=== PATIENT | female | born 1985 | race Caucasian/White ===

== ENCOUNTER 2022-03-30 09:32 | Emergency (ER) | payer SELFPAY ==
[2022-03-30] MEDS ORDERED: Ibuprofen 600 MG Tab PO ONE (09:48)
== END 2022-03-30 10:30 | disposition home or self-care (01) ==
LOC: MW.ED 09:32
DX: S29.011A Strain of muscle and tendon of front wall of thorax, initial encounter (principal); Y04.0XXA Assault by unarmed brawl or fight, initial encounter
CPT/HCPCS: 71046; 99284; A9270

== ENCOUNTER 2022-04-01 20:18 | Emergency (ER) | payer SELFPAY ==
[2022-04-01] MEDS ORDERED: Sodium Chloride 0.9% 1,000 ML IV ONE (22:41)
[2022-04-01] MEDS ORDERED: Ondansetron 4 MG/2 ML SDV IVPUSH ONE (22:46)
[2022-04-01] MEDS ORDERED: HYDROmorphone 1 MG/ML Syringe IVPUSH ONE (22:46)
[2022-04-01 23:41] LABS: CARBON DIOXIDE,CO2 26.8 mmol/L (21.0-32.0); POTASSIUM,K 4.7 mmol/L (3.5-5.1)
[2022-04-02] MEDS ORDERED: Iopamidol 755 MG/ML 500 ML Multipack Bottle IVPUSH STA (00:35)
[2022-04-02] MEDS ORDERED: ceFAZolin 1 GM in Premix Bag 1 BAG IV SCH (01:30)
[2022-04-02] MEDS ORDERED: Acetaminophen/HYDROcodone 325-5 MG Tab PO ONE (01:51)
== END 2022-04-02 02:30 | disposition home or self-care (01) ==
LOC: MW.ED 20:18
DX: S29.011A Strain of muscle and tendon of front wall of thorax, initial encounter (principal); N61.0 Mastitis without abscess; Z86.16 Personal history of COVID-19; Y04.0XXA Assault by unarmed brawl or fight, initial encounter; Y93.72 Activity, wrestling
CPT/HCPCS: 36415; 71260; 80053; 83605; 84703; 85025; 87040; 96361; 96365; 96375; 99284; A9270; J0690; J1170; J2405; J7030; Q9967

== ENCOUNTER 2022-07-08 00:05 | Emergency (ER) | payer SELFPAY ==
[2022-07-08] MEDS ORDERED: Acetaminophen/HYDROcodone 325-5 MG Tab PO ONE (01:01)
[2022-07-08] MEDS ORDERED: Tranexamic Acid 1,000 MG/10 ML Vial ONE (02:15)
== END 2022-07-08 03:03 | disposition home or self-care (01) ==
LOC: MW.ED 00:05
DX: S09.93XA Unspecified injury of face, initial encounter (principal); S01.511A Laceration without foreign body of lip, initial encounter; Y04.0XXA Assault by unarmed brawl or fight, initial encounter
CPT/HCPCS: 70486; 99284; A9270; J3490

== ENCOUNTER 2022-08-26 09:20 | Emergency (ER) | payer SELFPAY ==
[2022-08-26] MEDS ORDERED: Tranexamic Acid 1,000 MG/10 ML Vial TOP ONE ×2 (09:43→10:28)
[2022-08-26] MEDS ORDERED: Lidocaine 1% with EPINEPHrine 1:100,000 10 ML MDV INJECT ONE (10:28)
[2022-08-26] MEDS ORDERED: Lidocaine 1% with EPINEPHrine 1:100,000 20 ML MDV INJECT ONE (10:37)
== END 2022-08-26 11:59 | disposition home or self-care (01) ==
LOC: MW.ED 09:20
DX: K06.8 Other specified disorders of gingiva and edentulous alveolar ridge (principal); Z86.16 Personal history of COVID-19
CPT/HCPCS: 99283; J3490

== ENCOUNTER 2022-09-04 23:55 | Emergency (ER) | payer SELFPAY ==
[2022-09-05] MEDS ORDERED: Acetaminophen 500 MG Tab PO ONE (00:05)
[2022-09-05] MEDS ORDERED: Ibuprofen 400 MG Tab PO ONE (00:05)
[2022-09-05] MEDS ORDERED: Lidocaine/Epineph/Tetracaine 3 ML Syringe TOP ONE (00:06)
[2022-09-05] MEDS ORDERED: Cephalexin 500 MG Cap PO ONE (01:33)
== END 2022-09-05 02:09 | disposition home or self-care (01) ==
LOC: MW.ED 23:55
DX: S61.211A Laceration without foreign body of left index finger without damage to nail, initial encounter (principal); Z86.16 Personal history of COVID-19; W26.0XXA Contact with knife, initial encounter
CPT/HCPCS: 12001; 99282; A9270

== ENCOUNTER 2022-09-17 04:07 | Emergency (ER) | payer SELFPAY ==
[2022-09-17] MEDS ORDERED: Tranexamic Acid 1,000 MG/10 ML Vial TOP ONE (04:27)
== END 2022-09-17 07:09 | disposition home or self-care (01) ==
LOC: MW.ED 04:07
DX: R04.0 Epistaxis (principal); Z86.16 Personal history of COVID-19
CPT/HCPCS: 30903; 99282; 99283; J3490

== ENCOUNTER 2023-02-20 20:53 | Emergency (ER) | payer SELFPAY ==
[2023-02-20 21:20] LABS: BASOPHILS PERCENT AUTO 0.6 % (0.0-1.5); EOSINOPHILS ABSOLUTE AUTO 0.1 K/uL (0.0-0.7); EOSINOPHILS PERCENT AUTO 1.3 % (0.0-7.0); HEMATOCRIT 22.4 % (36.0-46.0); HEMOGLOBIN 6.3 g/dL (12.0-16.0); LYMPHOCYTES ABSOLUTE AUTO 1.6 K/uL (0.6-2.4); LYMPHOCYTES PERCENT AUTO 23.7 % (16.0-40.0); MEAN CORPUSCULAR HEMOGLOBIN 26.1 pg (27.0-32.0); MEAN CORPUSCULAR HGB CONC 28.1 g/dL (31.0-37.0); MEAN CORPUSCULAR VOLUME 92.9 fL (80.0-98.0); MONOCYTES ABSOLUTE AUTO 0.4 K/uL (0.0-0.8); MONOCYTES PERCENT AUTO 5.8 % (0.0-15.0); NEUTROPHILS ABSOLUTE AUTO 4.7 K/uL (1.4-5.7); NEUTROPHILS PERCENT AUTO 68.6 % (48.0-80.0); NRBC ABSOLUTE 0 K/uL; NRBC PERCENT 0.4 /100WBC; RED BLOOD CELL COUNT 2.41 M/uL (4.30-5.90); WHITE BLOOD CELL COUNT,WBC 6.88 K/uL (4.0-11.0)
[2023-02-20] MEDS ORDERED: Morphine 4 MG/ML Syringe IVPUSH ONE ×2 (21:20→22:49)
[2023-02-20] MEDS ORDERED: Ondansetron 4 MG/2 ML SDV IVPUSH ONE (21:20)
[2023-02-20 21:35] LABS: PLATELET COUNT,PLT 128 K/uL (150-400)
[2023-02-20 21:42] LABS: A/G RATIO 0.4 (0.9-1.6); ALBUMIN 2.4 g/dL (3.4-5.0); BILIRUBIN TOTAL 5.2 mg/dL (0.2-1.0); CALCIUM 7.3 mg/dL (8.5-10.1); CARBON DIOXIDE,CO2 25.4 mmol/L (21.0-32.0); CREATININE 0.7 mg/dL (0.6-1.0); EST CRCL DRUG DOSING (CG) 95.02 mL/min; POTASSIUM,K 3.7 mmol/L (3.5-5.1); PROTEIN TOTAL,TP 7.8 g/dL (6.4-8.2)
[2023-02-20] MEDS ORDERED: Iopamidol 755 MG/ML 500 ML Multipack Bottle IVPUSH ONE (22:05)
[2023-02-20] MEDS ORDERED: Morphine 10 MG/ML SDV IVPUSH ONE (22:42)
[2023-02-20] MEDS ORDERED: Morphine 4 MG/ML Syringe ONE (22:45)
[2023-02-20] MEDS ORDERED: Metoclopramide 10 MG/2 ML SDV IVPUSH ONE (23:31)
== END 2023-02-21 02:30 | disposition left against medical advice (07) ==
LOC: MW.ED 20:53
DX: K92.0 Hematemesis (principal); D64.9 Anemia, unspecified; J90 Pleural effusion, not elsewhere classified; Z86.16 Personal history of COVID-19; Z98.890 Other specified postprocedural states
CPT/HCPCS: 36415; 36430; 74177; 80053; 81025; 85025; 86850; 86900; 86901; 86920; 96374; 96375; 96376; 99284; J2270; J2405; J2765; P9016; Q9967

== ENCOUNTER 2023-02-26 13:18 | Emergency (ER) | payer SELFPAY ==
[2023-02-26 14:01] LABS: BASOPHILS PERCENT AUTO 0.8 % (0.0-1.5); EOSINOPHILS ABSOLUTE AUTO 0.1 K/uL (0.0-0.7); EOSINOPHILS PERCENT AUTO 1.7 % (0.0-7.0); HEMOGLOBIN 7.8 g/dL (12.0-16.0); LYMPHOCYTES ABSOLUTE AUTO 0.9 K/uL (0.6-2.4); LYMPHOCYTES PERCENT AUTO 17.3 % (16.0-40.0); MEAN CORPUSCULAR HEMOGLOBIN 26.8 pg (27.0-32.0); MEAN CORPUSCULAR HGB CONC 28.9 g/dL (31.0-37.0); MEAN CORPUSCULAR VOLUME 92.8 fL (80.0-98.0); MONOCYTES ABSOLUTE AUTO 0.2 K/uL (0.0-0.8); MONOCYTES PERCENT AUTO 4.5 % (0.0-15.0); NEUTROPHILS PERCENT AUTO 75.7 % (48.0-80.0); NRBC ABSOLUTE 0 K/uL; PLATELET COUNT,PLT 89 K/uL (150-400); RED BLOOD CELL COUNT 2.91 M/uL (4.30-5.90); WHITE BLOOD CELL COUNT,WBC 5.32 K/uL (4.0-11.0)
[2023-02-26] MEDS ORDERED: Pantoprazole 80 MG in Sodium Chloride 0.9% 10 ML IVPUSH ONE (14:01)
[2023-02-26 14:11] LABS: CALCIUM 7.8 mg/dL (8.5-10.1); CARBON DIOXIDE,CO2 27.6 mmol/L (21.0-32.0); CREATININE 0.6 mg/dL (0.6-1.0); EST CRCL DRUG DOSING (CG) 120.18 mL/min; POTASSIUM,K 3.4 mmol/L (3.5-5.1)
[2023-02-26] MEDS ORDERED: cefTRIAXone 1 GM in Sodium Chloride 0.9% 50 ML IV SCH (14:15)
[2023-02-26] MEDS ORDERED: Octreotide 500 MCG in Sodium Chloride 0.9% 495 ML IV SCH ×2 (14:15→14:45)
[2023-02-26 14:17] LABS: INR 1.66 (0.86-1.11)
[2023-02-26 14:20] LABS: LACTIC ACID 1.3 mmol/L (0.4-2.0)
[2023-02-26] MEDS ORDERED: Morphine 4 MG/ML Syringe IVPUSH ONE ×2 (14:52→15:57)
[2023-02-26] MEDS ORDERED: Iopamidol 755 Mg/ML 100 ML Bottle IVPUSH ONE (15:05)
[2023-02-26 15:43] LABS: A/G RATIO 0.4 (0.9-1.6); ALBUMIN 2.4 g/dL (3.4-5.0); BILIRUBIN TOTAL 6.2 mg/dL (0.2-1.0); CALCIUM 7.3 mg/dL (8.5-10.1); CARBON DIOXIDE,CO2 26.2 mmol/L (21.0-32.0); CREATININE 0.6 mg/dL (0.6-1.0); EST CRCL DRUG DOSING (CG) 120.18 mL/min; POTASSIUM,K 3.4 mmol/L (3.5-5.1); PROTEIN TOTAL,TP 7.9 g/dL (6.4-8.2)
[2023-02-26] MEDS ORDERED: Naloxone 0.4 MG/ML SDV IVPUSH PRN (15:57)
[2023-02-26 15:58] LABS: BICARBONATE,ARTERIAL 24 mEq/L (22-26); PCO2 ARTERIAL 34 mmHG (35-45); PO2 ARTERIAL 103 mmHG (80-105)
[2023-02-26 16:25] LABS: GLUCOSE,URINE NEGATIVE (NEGATIVE); KETONES,URINE NEGATIVE (NEGATIVE); LEUKOCYTE ESTERASE,URINE TRACE (NEGATIVE); NITRITE,URINE POSITIVE (NEGATIVE); OCCULT BLOOD,URINE NEGATIVE (NEGATIVE); PROTEIN,URINE TRACE mg/dL (NEGATIVE); UROBILINOGEN,URINE >=8.0 EU/dL (<2.0)
[2023-02-26 16:32] LABS: APPEARANCE,URINE CLEAR; BILIRUBIN,URINE LARGE (NEGATIVE)
[2023-02-26 16:33] LABS: COLOR,URINE ORANGE
[2023-02-26 16:34] LABS: BACTERIA,URINE RARE (NEGATIVE); EPITHELIAL CELLS,URINE RARE (NONE-FEW); RBC,URINE 0-2 (0-2/HPF)
[2023-02-26] MEDS ORDERED: Sodium Chloride 0.9% 250 ML IV ONE (16:37)
[2023-02-26] MEDS ORDERED: Ondansetron 4 MG/2 ML SDV IVPUSH ONE (19:23)
== END 2023-02-26 19:15 ==
LOC: MW.ED 13:18
DX: K92.0 Hematemesis (principal); F17.210 Nicotine dependence, cigarettes, uncomplicated; Z86.16 Personal history of COVID-19
CPT/HCPCS: 36415; 36430; 36600; 74177; 80048; 80053; 81001; 82803; 83605; 84703; 85025; 85610; 86850; 86900; 86901; 86920; 96365; 96366; 96367; 96375; 96376; 99291; C9113; J0696; J2270; J2354; J2405; J3490; J7030; J7040; P9016; Q9967

== ENCOUNTER 2023-04-13 19:16 | Emergency (ER) | payer SELFPAY ==
[2023-04-13] MEDS ORDERED: Sodium Chloride 0.9% 10 ML Syringe FLUSH PRN (21:32)
[2023-04-13] MEDS ORDERED: Sodium Chloride 0.9% 2.5 ML Syringe FLUSH PRN (21:32)
[2023-04-13] MEDS ORDERED: Naloxone 0.4 MG/ML SDV IVPUSH PRN (21:35)
[2023-04-13 21:45] LABS: GLUCOSE,URINE NEGATIVE (NEGATIVE); KETONES,URINE TRACE mg/dL (NEGATIVE); LEUKOCYTE ESTERASE,URINE TRACE (NEGATIVE); NITRITE,URINE POSITIVE (NEGATIVE); OCCULT BLOOD,URINE NEGATIVE (NEGATIVE); PH,URINE 6.5 (5.0-8.0); PROTEIN,URINE TRACE mg/dL (NEGATIVE)
[2023-04-13 21:52] LABS: APPEARANCE,URINE HAZY; BILIRUBIN,URINE MODERATE (NEGATIVE); COLOR,URINE DARK YELLOW; EPITHELIAL CELLS,URINE FEW (NONE-FEW); RBC,URINE 0-2 (0-2/HPF)
[2023-04-13 21:53] LABS: BASOPHILS ABSOLUTE AUTO 0.03 K/uL (0.00-0.20); BASOPHILS PERCENT AUTO 0.4 % (0.0-1.0); EOSINOPHILS ABSOLUTE AUTO 0.16 K/uL (0.00-0.45); EOSINOPHILS PERCENT AUTO 1.9 % (0.0-6.0); HEMOGLOBIN 8.4 g/dL (12.0-16.0); IMMATURE GRAN ABSOLUTE AUTO 0.02 K/uL (0.00-0.05); IMMATURE GRAN PERCENT AUTO 0.2 % (0.0-0.4); LYMPHOCYTES ABSOLUTE AUTO 2.87 K/uL (1.00-4.80); MEAN CORPUSCULAR HEMOGLOBIN 29.8 pg (28.0-32.0); MEAN CORPUSCULAR HGB CONC 33.6 g/dL (32.0-36.0); MEAN CORPUSCULAR VOLUME 88.7 fL (83.0-99.0); MEAN PLATELET VOLUME 9.4 fL (9.4-12.3); MONOCYTES ABSOLUTE AUTO 0.47 K/uL (0.00-0.80); MONOCYTES PERCENT AUTO 5.6 % (0.0-8.0); NEUTROPHILS ABSOLUTE AUTO 4.89 K/uL (1.80-7.70); NEUTROPHILS PERCENT AUTO 57.9 % (41.0-71.0); PLATELET COUNT,PLT 108 K/uL (150-400); RED BLOOD CELL COUNT 2.82 M/uL (4.10-5.30); WHITE BLOOD CELL COUNT,WBC 8.44 K/uL (3.9-11.3)
[2023-04-13 21:53] LABS: AMORPHOUS SEDIMENT,URINE LIGHT (NEGATIVE); BACTERIA,URINE FEW (NEGATIVE); MUCUS,URINE LIGHT (NONE-MOD)
[2023-04-13] MEDS: Morphine 4 MG/ML Syringe IVPUSH PRN ×2 (21:53→23:53)
[2023-04-13 21:54] LABS: AMPHETAMINES SCREEN, URINE NEGATIVE (CUTOFF=500); BARBITURATE SCREEN,URINE NEGATIVE (CUTOFF=200); BENZODIAZEPINES SCREEN,URINE NEGATIVE (CUTOFF=150); BUPRENORPHINE SCREEN,URINE NEGATIVE (CUTOFF=10); METHADONE SCREEN, URINE NEGATIVE (CUTOFF=200); METHAMPHETAMINES SCREEN, URINE NEGATIVE (CUTOFF=500); OXYCODONE SCREEN,URINE NEGATIVE (CUT0FF=100); PCP SCREEN,URINE NEGATIVE (CUTOFF=25); PROPOXYPHENE SCREEN,URINE NEGATIVE (CUTOFF=300); THC SCREEN,URINE 20 NG/ML NEGATIVE (CUTOFF=50)
[2023-04-13 22:03] LABS: INR 1.55 (0.86-1.11)
[2023-04-13 22:13] LABS: A/G RATIO 0.5 (0.9-1.6); ALBUMIN 2.6 g/dL (3.4-5.0); BILIRUBIN TOTAL 5.6 mg/dL (0.2-1.0); CALCIUM 8.1 mg/dL (8.5-10.1); CREATININE 0.7 mg/dL (0.6-1.0); EST CRCL DRUG DOSING (CG) 95.02 mL/min; POTASSIUM,K 3.7 mmol/L (3.5-5.1); PROTEIN TOTAL,TP 7.9 g/dL (6.4-8.2)
[2023-04-13] MEDS ORDERED: Iopamidol 755 MG/ML 500 ML Multipack Bottle IVPUSH ONE (22:46)
[2023-04-13] MEDS ORDERED: Octyl 2-Cyanoacrylate 1 g/1 mL 1 APPLIC PEN TOP ONE (23:52)
[2023-04-14] MEDS ORDERED: Ondansetron 4 MG/2 ML SDV IVPUSH ONE ×2 (00:34→01:28)
[2023-04-14] MEDS ORDERED: Pantoprazole 80 MG in Sodium Chloride 0.9% 10 ML IVPUSH ONE (01:03)
[2023-04-14] MEDS ORDERED: Sodium Chloride 0.9% 10 ML Syringe FLUSH PRN (01:06)
[2023-04-14] MEDS ORDERED: Sodium Chloride 0.9% 2.5 ML Syringe FLUSH PRN (01:06)
[2023-04-14] MEDS ORDERED: Octreotide 500 MCG in Sodium Chloride 0.9% 495 ML IV SCH (01:15)
[2023-04-14 01:16] LABS: HEMATOCRIT 24.6 % (37.0-47.0); HEMOGLOBIN 8.3 g/dL (12.0-16.0); MEAN CORPUSCULAR HGB CONC 33.7 g/dL (32.0-36.0); MEAN CORPUSCULAR VOLUME 88.8 fL (83.0-99.0); MEAN PLATELET VOLUME 9.4 fL (9.4-12.3); PLATELET COUNT,PLT 95 K/uL (150-400); RED BLOOD CELL COUNT 2.77 M/uL (4.10-5.30); WHITE BLOOD CELL COUNT,WBC 7.25 K/uL (3.9-11.3)
[2023-04-14] MEDS: Morphine 4 MG/ML Syringe IVPUSH PRN (01:49)
[2023-04-14] MEDS ORDERED: LORazepam 2 MG/ML SDV IVPUSH ONE (02:53)
== END 2023-04-14 03:20 ==
LOC: MW.ED 19:16
DX: S61.012A Laceration without foreign body of left thumb without damage to nail, initial encounter (principal); K92.2 Gastrointestinal hemorrhage, unspecified; K72.90 Hepatic failure, unspecified without coma; Z86.16 Personal history of COVID-19; W26.8XXA Contact with other sharp object(s), not elsewhere classified, initial encounter
CPT/HCPCS: 12001; 36415; 71045; 74177; 80053; 80305; 81001; 81025; 83690; 85025; 85027; 85610; 86850; 86900; 86901; 96365; 96375; 96376; 99285; A9270; C9113; J2060; J2270; J2354; J2405; J3490; J7040; Q9967